=== PATIENT | male | born 1985 ===

== ENCOUNTER 2024-12-14 15:54 | Outpatient (CLI) | payer OTHER, SELFPAY ==
--- NOTE | ~2024-12-14 | CT_ITS ---
EXAMINATION: CT sinus wo con DATE: 12/14/2024 16:06 INDICATION: Epistaxis TECHNIQUE: Computed tomography (CT) of the paranasal sinuses was performed without intravenous contra st. The dose-length product was 296.82 mGy-cm. Automated exposure control and iterative reconstructio n technique were employed. COMPARISON: None FINDINGS: There is mucosal thickening of the maxillary, ethmoid and sphenoid sinuses. No mucoperioste al reaction. Rightward nasal septal deviation. No mucoperiosteal reaction. Mastoids are pneumatized. IMPRESSION: 1. Mild sinus disease. Reviewed, dictated and finalized at location L. O MACHINIST IMPRESSION: 1. Mild sinus disease.
== END 2024-12-14 15:55 | disposition home or self-care (01) ==
LOC: MICIMG 15:56
PROVIDERS: PCP Nurse Practitioner Family; Visit Provider Nurse Practitioner Family
DX: J32.9 Chronic sinusitis, unspecified (principal)
CPT/HCPCS: 70486